=== PATIENT | female | born 1995 | race Caucasian/White ===

== ENCOUNTER 2018-01-27 15:24 | Emergency (ER) | payer OTHER ==
[2018-01-27 17:11] LABS: ADD MAN DIFF? NO
[2018-01-27 17:16] LABS: BASOPHIL # 0.1 10^3/ul (0.0-0.1); BASOPHILS % 0.6 % (0.0-2.0); EOSINOPHILS # 0.1 10^3/ul (0.0-0.5); EOSINOPHILS % 0.5 % (0.0-7.0); HEMOGLOBIN 13.9 g/dl (12.0-16.0); LYMPHOCYTES # 1.8 10^3/ul (0.8-2.9); LYMPHOCYTES % 13.9 % (15.0-51.0); MEAN CORPUSCULAR HEMOGLOBIN 31.4 pg (29.0-33.0); MEAN CORPUSCULAR HGB CONC 33.9 g/dl (32.0-37.0); MEAN CORPUSCULAR VOLUME 92.6 fl (82.0-101.0); MEAN PLATELET VOLUME 10.1 fl (7.4-10.4); MONOCYTE # 0.9 10^3/ul (0.3-0.9); MONOCYTES % 7.2 % (0.0-11.0); NEUTROPHIL # 9.5 10^3/ul (1.6-7.5); NEUTROPHILS % 75.3 % (39.0-77.0); PLATELET COUNT 239 10^3/UL (140-415); RED BLOOD COUNT 4.43 10^6/ul (4.20-5.40); RED CELL DISTRIBUTION WIDTH 13.5 % (11.5-14.5)
[2018-01-27 17:16] LABS: WHITE BLOOD COUNT 12.6 10^3/ul (4.8-10.8)
[2018-01-27 17:38] LABS: ADD UMIC YES; UR ASCORBIC ACID NEGATIVE (NEGATIVE); UR BACTERIA FEW /HPF (NONE SEEN); UR BILIRUBIN (Dip) NEGATIVE (NEGATIVE); UR BLOOD (Dip) NEGATIVE (NEGATIVE); UR CLARITY SLIGHTLY CLOUDY (CLEAR); UR COLOR YELLOW (YELLOW); UR GLUCOSE (Dip) 1+ mg/dL (NEGATIVE); UR KETONES (Dip) NEGATIVE (NEGATIVE); UR LEUKOCYTE ESTERASE (Dip) 2+ Leu/ul (NEGATIVE); UR MUCUS FEW /HPF (NONE SEEN); UR NITRITE (Dip) NEGATIVE (NEGATIVE); UR RBC 1 /HPF (0-5); UR SPECIFIC GRAVITY (Dip) 1.011 (1.003-1.030); UR SQUAMOUS EPITHELIAL CELL MANY /HPF (FEW); UR TOTAL PROTEIN (Dip) NEGATIVE (NEGATIVE); UR UROBILINOGEN (Dip) NEGATIVE (NEGATIVE); UR WBC 6 /HPF (0-5)
[2018-01-27 17:49] LABS: ANION GAP 14 (8-16); BLOOD UREA NITROGEN 8 mg/dl (7-20); CALCIUM 9.7 mg/dl (8.4-10.2); CARBON DIOXIDE 28 mmol/L (21-31); CHLORIDE 105 mmol/L (97-110); CREATININE 0.59 mg/dl (0.44-1.00); GLUCOSE 93 mg/dl (70-220); POTASSIUM 4.5 mmol/L (3.5-5.1); SODIUM 142 mmol/L (135-144)
== END 2018-01-27 18:43 | disposition home or self-care (01) ==
LOC: FTE 15:24
DX: O23.42 Unspecified infection of urinary tract in pregnancy, second trimester (principal); R00.2 Palpitations; Z3A.19 19 weeks gestation of pregnancy
CPT/HCPCS: 36415; 76805; 80048; 81001; 84702; 85025; 86900; 86901; 93005; 99285-25

== ENCOUNTER 2018-03-05 10:14 | Outpatient (CLI) | payer OTHER | END 2018-03-05 13:20 | disposition home or self-care (01) | LOC: OBT 10:14 → L-D 10:15 → OBT 13:20 | DX: O36.8120 Decreased fetal movements, second trimester, not applicable or unspecified (principal); Z3A.24 24 weeks gestation of pregnancy | CPT/HCPCS: 76818 ==

== ENCOUNTER 2018-05-15 15:14 | Outpatient (CLI) | payer OTHER ==
[2018-05-15 16:33] LABS: ADD UMIC YES; UR ASCORBIC ACID NEGATIVE (NEGATIVE); UR BACTERIA FEW /HPF (NONE SEEN); UR BILIRUBIN (Dip) NEGATIVE (NEGATIVE); UR BLOOD (Dip) NEGATIVE (NEGATIVE); UR CLARITY SLIGHTLY CLOUDY (CLEAR); UR COLOR YELLOW (YELLOW); UR GLUCOSE (Dip) NEGATIVE (NEGATIVE); UR KETONES (Dip) NEGATIVE (NEGATIVE); UR LEUKOCYTE ESTERASE (Dip) TRACE Leu/ul (NEGATIVE); UR NITRITE (Dip) NEGATIVE (NEGATIVE); UR RBC 1 /HPF (0-5); UR SPECIFIC GRAVITY (Dip) 1.013 (1.003-1.030); UR SQUAMOUS EPITHELIAL CELL FEW /HPF (FEW); UR TOTAL PROTEIN (Dip) NEGATIVE (NEGATIVE); UR UROBILINOGEN (Dip) NEGATIVE (NEGATIVE); UR WBC 1 /HPF (0-5)
== END 2018-05-15 17:45 | disposition home or self-care (01) ==
LOC: OBT 15:14 → L-D 15:16 → OBT 17:45
DX: O26.893 Other specified pregnancy related conditions, third trimester (principal); R10.2 Pelvic and perineal pain; Z3A.35 35 weeks gestation of pregnancy
CPT/HCPCS: 76818; 81001; 87086

== ENCOUNTER 2018-05-25 18:25 | Inpatient (IN) | payer OTHER ==
[2018-05-25 20:38] LABS: ADD UMIC YES; UR ASCORBIC ACID NEGATIVE (NEGATIVE); UR BACTERIA FEW /HPF (NONE SEEN); UR BILIRUBIN (Dip) NEGATIVE (NEGATIVE); UR BLOOD (Dip) 3+ mg/dL (NEGATIVE); UR CLARITY SLIGHTLY CLOUDY (CLEAR); UR COLOR STRAW (YELLOW); UR GLUCOSE (Dip) NEGATIVE (NEGATIVE); UR KETONES (Dip) NEGATIVE (NEGATIVE); UR LEUKOCYTE ESTERASE (Dip) 2+ Leu/ul (NEGATIVE); UR NITRITE (Dip) NEGATIVE (NEGATIVE); UR RBC 2 /HPF (0-5); UR SPECIFIC GRAVITY (Dip) 1.003 (1.003-1.030); UR SQUAMOUS EPITHELIAL CELL FEW /HPF (FEW); UR TOTAL PROTEIN (Dip) NEGATIVE (NEGATIVE); UR UROBILINOGEN (Dip) NEGATIVE (NEGATIVE); UR WBC 7 /HPF (0-5)
[2018-05-25] MEDS: CEFAZOLIN 1 GM/50 ML (PMX) 50 ML IVPB (22:53)
[2018-05-25 22:54] LABS: ADD MAN DIFF? NO
[2018-05-25] MEDS: LACTATED RINGER'S 1,000 ML IV (22:54)
[2018-05-25 22:57] LABS: WHITE BLOOD COUNT 10.2 10^3/ul (4.8-10.8)
[2018-05-25 22:57] LABS: BASOPHIL # 0.1 10^3/ul (0.0-0.1); BASOPHILS % 0.5 % (0.0-2.0); EOSINOPHILS # 0.1 10^3/ul (0.0-0.5); EOSINOPHILS % 0.6 % (0.0-7.0); HEMATOCRIT 35.2 % (37.0-47.0); HEMOGLOBIN 11.5 g/dl (12.0-16.0); LYMPHOCYTES # 2.1 10^3/ul (0.8-2.9); LYMPHOCYTES % 20.7 % (15.0-51.0); MEAN CORPUSCULAR HEMOGLOBIN 28.7 pg (29.0-33.0); MEAN CORPUSCULAR HGB CONC 32.7 g/dl (32.0-37.0); MEAN CORPUSCULAR VOLUME 87.8 fl (82.0-101.0); MEAN PLATELET VOLUME 11.8 fl (7.4-10.4); MONOCYTE # 0.8 10^3/ul (0.3-0.9); MONOCYTES % 7.4 % (0.0-11.0); NEUTROPHIL # 7.1 10^3/ul (1.6-7.5); NEUTROPHILS % 69.2 % (39.0-77.0); PLATELET COUNT 207 10^3/UL (140-415); RED BLOOD COUNT 4.01 10^6/ul (4.20-5.40); RED CELL DISTRIBUTION WIDTH 14.1 % (11.5-14.5)
[2018-05-26] MEDS: LACTATED RINGER'S 1,000 ML IV ×3 (05:31→22:08)
[2018-05-26] MEDS: CEFAZOLIN 1 GM/50 ML (PMX) 50 ML IVPB ×3 (07:04→22:15)
[2018-05-27] MEDS: LACTATED RINGER'S 1,000 ML IV ×3 (06:10→22:26)
[2018-05-27] MEDS: CEFAZOLIN 1 GM/50 ML (PMX) 50 ML IVPB ×2 (06:19→14:08)
[2018-05-27] MEDS: DOCUSATE SODIUM 100 MG CAP PO (21:19)
[2018-05-27] MEDS: CEPHALEXIN 500 MG CAP PO (22:20)
[2018-05-28] MEDS: LACTATED RINGER'S 1,000 ML IV ×3 (06:59→23:28)
[2018-05-28] MEDS: PRENATAL VITAMIN PO (09:05)
[2018-05-28] MEDS: DOCUSATE SODIUM 100 MG CAP PO ×2 (09:05→21:56)
[2018-05-28] MEDS: CEPHALEXIN 500 MG CAP PO ×3 (09:05→21:56)
[2018-05-28 17:09] LABS: ADD MAN DIFF? NO
[2018-05-28 17:11] LABS: WHITE BLOOD COUNT 8.2 10^3/ul (4.8-10.8)
[2018-05-28 17:11] LABS: BASOPHILS % 0.2 % (0.0-2.0); EOSINOPHILS # 0.1 10^3/ul (0.0-0.5); EOSINOPHILS % 0.6 % (0.0-7.0); HEMATOCRIT 36.1 % (37.0-47.0); HEMOGLOBIN 11.6 g/dl (12.0-16.0); LYMPHOCYTES # 1.5 10^3/ul (0.8-2.9); LYMPHOCYTES % 18.5 % (15.0-51.0); MEAN CORPUSCULAR HEMOGLOBIN 28.7 pg (29.0-33.0); MEAN CORPUSCULAR HGB CONC 32.1 g/dl (32.0-37.0); MEAN CORPUSCULAR VOLUME 89.4 fl (82.0-101.0); MEAN PLATELET VOLUME 11.6 fl (7.4-10.4); MONOCYTE # 0.7 10^3/ul (0.3-0.9); MONOCYTES % 8.6 % (0.0-11.0); NEUTROPHIL # 5.7 10^3/ul (1.6-7.5); NEUTROPHILS % 69.3 % (39.0-77.0); PLATELET COUNT 188 10^3/UL (140-415); RED BLOOD COUNT 4.04 10^6/ul (4.20-5.40); RED CELL DISTRIBUTION WIDTH 14.2 % (11.5-14.5)
[2018-05-28 17:34] LABS: INR 0.88; PT RATIO 0.9
[2018-05-28 17:35] LABS: PARTIAL THROMBOPLASTIN TIME 26.7 Sec (25.0-35.0)
[2018-05-28 17:49] LABS: ALANINE AMINOTRANSFERASE 9 IU/L (13-69); ALBUMIN 3.7 g/dl (3.3-4.9); ALBUMIN/GLOBULIN RATIO 1.19; ALKALINE PHOSPHATASE 202 IU/L (42-121); ASPARTATE AMINO TRANSFERASE 21 IU/L (15-46); BILIRUBIN,INDIRECT 0.1 mg/dl (0-1.1); BILIRUBIN,TOTAL 0.1 mg/dl (0.2-1.3); BLOOD UREA NITROGEN 7 mg/dl (7-20); CALCIUM 9.2 mg/dl (8.4-10.2); CARBON DIOXIDE 21 mmol/L (21-31); CHLORIDE 107 mmol/L (97-110); CREATININE 0.48 mg/dl (0.44-1.00); GLUCOSE 88 mg/dl (70-220); SODIUM 140 mmol/L (135-144); TOTAL PROTEIN 6.8 g/dl (6.1-8.1)
[2018-05-28 18:14] LABS: ANION GAP 16 (8-16); POTASSIUM 3.8 mmol/L (3.5-5.1)
[2018-05-28 22:11] LABS: RAPID PLASMA REAGIN NONREACTIVE (NR)
[2018-05-29] MEDS: LACTATED RINGER'S 1,000 ML IV ×2 (05:36→14:55)
[2018-05-29] MEDS: DOCUSATE SODIUM 100 MG CAP PO (08:33)
[2018-05-29] MEDS: PRENATAL VITAMIN PO (08:33)
[2018-05-29] MEDS: CEPHALEXIN 500 MG CAP PO ×3 (10:02→21:01)
[2018-05-29] MEDS ORDERED: BUTORPHANOL 2 MG INJ IV (15:30)
[2018-05-29] MEDS ORDERED: OXYTOCIN 30 UNITS/LR 500 ML IV ×2 (15:30)
[2018-05-29] MEDS ORDERED: IBUPROFEN 600 MG TAB PO (15:30)
[2018-05-29] MEDS ORDERED: CARBOPROST 250 MCG INJ IM (15:30)
[2018-05-29] MEDS ORDERED: LIDOCAINE 1% (MPF) 30 ML INJ INJ (15:30)
[2018-05-29] MEDS ORDERED: MISOPROSTOL 200 MCG TAB PR (15:30)
[2018-05-29] MEDS ORDERED: METHYLERGONOVINE 0.2 MG INJ IM (15:30)
[2018-05-29] MEDS: DINOPROSTONE 10 MG VAG SUPP VAG (16:03)
[2018-05-29] MEDS: LACTATED RINGER'S 1,000 ML IV* (22:48)
[2018-05-30 00:55] LABS: HEPATITIS B SURFACE ANTIGEN NEGATIVE (NEGATIVE)
[2018-05-30] MEDS: LACTATED RINGER'S 1,000 ML IV* ×4 (06:36→21:50)
[2018-05-30] MEDS: OXYTOCIN 30 UNITS/LR 500 ML IV ×2 (09:37→23:55)
[2018-05-30] MEDS: CEPHALEXIN 500 MG CAP PO ×3 (09:41→23:45)
[2018-05-30] MEDS ORDERED: FENTAnyl 2MCG/ML-ROPIV 0.2% 100 ML (20:44)
[2018-05-30] MEDS ORDERED: NALOXONE (0.4 MG/ML) INJ IV (21:00)
[2018-05-31] MEDS: FENTAnyl 2MCG/ML-ROPIV 0.2% 100 ML BAG EPI ×2 (02:28→02:34)
[2018-05-31] MEDS: LACTATED RINGER'S 1,000 ML IV* (02:34)
[2018-05-31] MEDS ORDERED: OXYTOCIN 30 UNITS/LR 500 ML IV (05:00)
[2018-05-31] MEDS ORDERED: ONDANSETRON 4 MG TAB PO (05:00)
[2018-05-31] MEDS ORDERED: METHYLERGONOVINE 0.2 MG INJ IM (05:00)
[2018-05-31] MEDS ORDERED: SENNA/DOCUSATE NA (8.6MG/50MG) TAB PO (05:00)
[2018-05-31] MEDS ORDERED: DIBUCAINE 1% 30 GM OINT PR (05:00)
[2018-05-31] MEDS ORDERED: NACL 0.9% 3 ML SYG IV (05:00)
[2018-05-31] MEDS ORDERED: MISOPROSTOL 200 MCG TAB PR (05:00)
[2018-05-31] MEDS ORDERED: CARBOPROST 250 MCG INJ IM (05:00)
[2018-05-31] MEDS ORDERED: ONDANSETRON 4 MG INJ IV (05:00)
[2018-05-31] MEDS ORDERED: OXYCODONE/ASPIRIN (4.88/325) TAB PO (05:00)
[2018-05-31] MEDS ORDERED: DIPHENHYDRAMINE 25 MG CAP PO (05:00)
[2018-05-31] MEDS: OXYTOCIN 30 UNITS/LR 500 ML IV ×2 (05:16→07:15)
[2018-05-31] MEDS: IBUPROFEN 600 MG TAB PO ×3 (07:15→17:13)
[2018-05-31] MEDS: MAGNESIUM HYDROXIDE 30ML CUP PO ×2 (10:43→21:08)
[2018-05-31] MEDS: LANOLIN 7 GM TUBE TOP (10:43)
[2018-05-31] MEDS: WITCH HAZEL/GLYCERIN PAD PR (10:43)
[2018-05-31] MEDS: BENZOCAINE 20% 56 ML SPRAY TOP (10:43)
[2018-05-31] MEDS: SENNA/DOCUSATE NA (8.6MG/50MG) TAB PO ×2 (10:43→21:08)
[2018-05-31] MEDS: OXYCODONE/ASPIRIN (4.88/325) TAB PO (11:07)
[2018-06-01] MEDS: IBUPROFEN 600 MG TAB PO ×5 (05:15→23:49)
[2018-06-01 06:44] LABS: ADD MAN DIFF? NO
[2018-06-01 06:49] LABS: BASOPHIL # 0.1 10^3/ul (0.0-0.1); BASOPHILS % 0.4 % (0.0-2.0); EOSINOPHILS # 0.1 10^3/ul (0.0-0.5); EOSINOPHILS % 1.1 % (0.0-7.0); HEMATOCRIT 36.6 % (37.0-47.0); HEMOGLOBIN 11.5 g/dl (12.0-16.0); LYMPHOCYTES # 2.4 10^3/ul (0.8-2.9); LYMPHOCYTES % 18.8 % (15.0-51.0); MEAN CORPUSCULAR HEMOGLOBIN 28.4 pg (29.0-33.0); MEAN CORPUSCULAR HGB CONC 31.4 g/dl (32.0-37.0); MEAN CORPUSCULAR VOLUME 90.4 fl (82.0-101.0); MEAN PLATELET VOLUME 11.6 fl (7.4-10.4); MONOCYTE # 0.9 10^3/ul (0.3-0.9); MONOCYTES % 7.3 % (0.0-11.0); NEUTROPHILS % 70.4 % (39.0-77.0); PLATELET COUNT 205 10^3/UL (140-415); RED BLOOD COUNT 4.05 10^6/ul (4.20-5.40); RED CELL DISTRIBUTION WIDTH 14.9 % (11.5-14.5)
[2018-06-01 06:49] LABS: WHITE BLOOD COUNT 12.8 10^3/ul (4.8-10.8)
[2018-06-01] MEDS: SENNA/DOCUSATE NA (8.6MG/50MG) TAB PO ×2 (09:15→22:08)
[2018-06-01] MEDS: MAGNESIUM HYDROXIDE 30ML CUP PO ×2 (09:15→21:00)
[2018-06-01] MEDS: LANOLIN 7 GM TUBE TOP (17:36)
[2018-06-02] MEDS: IBUPROFEN 600 MG TAB PO ×2 (05:27→11:39)
[2018-06-02] MEDS: MAGNESIUM HYDROXIDE 30ML CUP PO (09:00)
[2018-06-02] MEDS: SENNA/DOCUSATE NA (8.6MG/50MG) TAB PO (09:01)
[2018-06-02] MEDS: WITCH HAZEL/GLYCERIN PAD PR (11:39)
== END 2018-06-02 13:49 | disposition home or self-care (01) | DRG 774 ==
LOC: OBT 18:25 → L-D 05-26 05:19 → PP1 05-31 06:45 → L-D 18:27 → OBT 21:20 → L-D 21:20
PROC: 10E0XZZ Delivery of Products of Conception, External Approach (ICD-10-PCS; principal; 2018-05-30)
PROC: 0HQ9XZZ Repair Perineum Skin, External Approach (ICD-10-PCS; 2018-05-30)
PROC: 3E033VJ Introduction of Other Hormone into Peripheral Vein, Percutaneous Approach (ICD-10-PCS; 2018-05-30)
DX: O36.5930 Maternal care for other known or suspected poor fetal growth, third trimester, not applicable or unspecified (principal); O75.3 Other infection during labor; O71.4 Obstetric high vaginal laceration alone; Z3A.37 37 weeks gestation of pregnancy; Z37.0 Single live birth
CPT/HCPCS: 62319; 76815; 76818; 76820; 80053; 81001; 85025; 85610; 85730; 86592; 86850; 86900; 86901; 87086; 87340; 88307; 99464

== ENCOUNTER 2018-07-14 16:31 | Emergency (ER) | payer OTHER ==
[2018-07-14 18:18] LABS: ADD UMIC NO; UR ASCORBIC ACID NEGATIVE (NEGATIVE); UR BILIRUBIN (Dip) NEGATIVE (NEGATIVE); UR BLOOD (Dip) NEGATIVE (NEGATIVE); UR CLARITY CLEAR (CLEAR); UR COLOR YELLOW (YELLOW); UR GLUCOSE (Dip) NEGATIVE (NEGATIVE); UR KETONES (Dip) NEGATIVE (NEGATIVE); UR LEUKOCYTE ESTERASE (Dip) NEGATIVE Leu/ul (NEGATIVE); UR NITRITE (Dip) NEGATIVE (NEGATIVE); UR SPECIFIC GRAVITY (Dip) 1.013 (1.003-1.030); UR TOTAL PROTEIN (Dip) NEGATIVE (NEGATIVE); UR UROBILINOGEN (Dip) NEGATIVE (NEGATIVE)
== END 2018-07-14 20:51 | disposition home or self-care (01) ==
LOC: FTE 16:31
DX: O99.89 Other specified diseases and conditions complicating pregnancy, childbirth and the puerperium (principal); R10.2 Pelvic and perineal pain
CPT/HCPCS: 76830; 76856; 81003; 81025; 87210; 99284-25